=== PATIENT | female | born 1980 | race Caucasian/White ===

== ENCOUNTER 2019-01-21 05:45 | Observation (INO) ==
--- NOTE | 2018-12-27 11:48 | Anesthesiology Consultation ---
Date of Service December 27, 2018 History Surgery Operation Date: 01/21/19 07:30 Proposed Procedures p Robotic Total Laparoscopic Hysterectomy - Gosia Quinonez MD, FACOG Height/Weight Height: 5 ft 3 in Weight: 61.235 kg Allergies Allergy/AdvReac Type Severity Reaction Status Date / Time nitrofurantoin Allergy Mild Rash Verified 12/24/18 08:02 prednisone Allergy Anxiety Verified 12/24/18 08:02 Medications Home Medications Medication Instructions Recorded Confirmed Last Taken albuterol sulfate 1 puff INHALATION Q6H PRN 12/24/18 12/24/18 Unknown cyclobenzaprine 1 dose PO UD PRN 12/24/18 12/24/18 Unknown tizanidine 1 cap PO UD PRN 12/24/18 12/24/18 Unknown tramadol 1 dose PO UD PRN 12/24/18 12/24/18 Unknown Past Surgical History Surgical History History of tubal ligation History of wisdom tooth extraction Social History Smoking Status: Current some day smoker tobacco type: cigarettes Do You Dip or Chew Tobacco: No Hx Alcohol Use: Yes Alcohol type: beer, wine and hard liquor alcohol intake frequency: a few times a week Hx Substance Use: Yes substance use type: marijuana Last Used Substance Other:: 12/24/18
--- NOTE | 2018-12-27 11:54 | PAT Medication Instructions ---
Medication Instructions Date of Service December 27, 2018 Home Medications albuterol sulfate 1 puff INHALATION Q6H PRN cyclobenzaprine 1 dose PO UD PRN tizanidine 1 cap PO UD PRN tramadol 1 dose PO UD PRN DO NOT take the morning of surgery cyclobenzaprine 1 dose PO UD PRN tizanidine 1 cap PO UD PRN Take morning of surgery With a small sip of water, OTHERWISE NOTHING TO EAT OR DRINK AFTER MIDNIGHT: albuterol sulfate 1 puff INHALATION Q6H PRN (use if needed; please bring with you to hospital day of surgery if possible) tramadol 1 dose PO UD PRN (okay to take up to 4 hours prior to surgery if needed) Take evening before surgery albuterol sulfate 1 puff INHALATION Q6H PRN (if needed) cyclobenzaprine 1 dose PO UD PRN (if needed) tizanidine 1 cap PO UD PRN (if needed) tramadol 1 dose PO UD PRN (if needed) Other Notes If you have any questions please call us at [phone] or [phone] or [phone] or [phone]
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
[2018-12-27 12:32] LABS: Basophils # (auto) 0.02 K/uL (0-0.2); Basophils % (auto) 0.5 %; Eosinophils # (auto) 0.21 K/uL (0-0.5); Eosinophils % (auto) 4.9 %; Hematocrit (blood only) 41.4 % (37-47); Hemoglobin 14.3 g/dL (12.0-16.0); Lymphocytes # (auto) 2.06 K/uL (1.2-3.4); Mean Corpuscular Hgb Conc 34.5 g/dL (32-36); Mean Corpuscular Volume 93.2 fL (80-100); Mean Platelet Volume 10.2 fL (7.4-10.4); Monocytes # (auto) 0.36 K/uL (0.11-0.59); Monocytes % (auto) 8.4 %; Neutrophils # (auto) 1.64 K/uL (1.4-6.5); Neutrophils % (auto) 38.2 %; Platelet Count 227 K/uL (130-400); RDW Coefficient of Variation 12.6 % (11.5-14.5); RDW Standard Deviation 43.7 fL (36.4-46.3); Red Blood Count 4.44 M/uL (4.2-5.4); White Blood Count 4.29 K/uL (4.8-10.8)
[2018-12-27 12:48] LABS: BUN Creatinine Ratio 11.2 (10-20); Calcium 9.5 mg/dl (8.5-10.1); Creatinine Clr Calc Pharmacy 96.5 ml/min; Est GFR (African American) 130.8; Est GFR (Non-African American) 112.9
--- OUTSIDE RECORDS SUMMARY | 2019-01-21 05:49 | External Medical Summary | Continuity of Care Document ---
:1980 Author Name Lucien Gaspar, Provider Address Unavailable Unavailable , Care Team Providers Name Role Phone Gosia Quinonez M.D. Unavailable [email or web address], NO Unavailable Unavailable Unavailable Unavailable Unavailable Problems Dysmenorrhea (625.3) (N94.6) Well female exam with routine gynecological exam (V72.31) (Z 01.419) Allergies and Adverse Reactions Macrobid CAPS (Allergy) Medications Singulair TABS Refills: 0 traMADol HCl TABS Refills: 0 Cyclobenzaprine HCl TABS Refills: 0 Zanaflex CAPS Refills: 0 Procedures History of Tubal Ligation Status: Comple jermaine Immunizations Immunizations not documented Plan of Treatment Planned Encounters Appointment; Gosia Quinonez M.D. Start: 05-Feb-2019 11:00 Request Planned Observations Planned Goals not documented Results CBC With DIFF Laboratory: [facility] [address] [facility]. [facility] [address] tel: 27-Dec-2018 11:56 WBC 4.29 K/uL (below low threshold) Rang e: 4.8-10.8 K/uL RBC 4.44 {M/uL} Range: 4.2-5.4 M/uL HEMOGLOBIN 14.3 g/dL Range: 12.0-16.0 g /dL HEMATOCRIT 41.4 % Range: 37-47 % MCV 93.2 fL Range: 80-100 fL MCH 32.2 pg Range: 25-34 pg MEAN CORPUSCULAR HGB CONC 34.5 g/dL Rang e: 32-36 g/dL RED CELL DISTRIBUTION WIDTH SD 43.7 Rang e: 36.4-46.3 fL fL RED CELL DISTRIBUTION WIDTH CV 12.6 Rang e: 11.5-14.5 % % PLATELET COUNT 227 K/uL Range: 130-400 K/uL MEAN PLATELET VOLUME 10.2 fL Range: 7.4 -10.4 fL NEUT % 38.2 % Range: % LYMPH % 48.0 % Range: % MONO % 8.4 % Range: % EOS % 4.9 % Range: % BASO % 0.5 % Range: % IG% 0.0 % Range: % Neutrophils (Auto) 1.64 K/uL Range: 1. 4-6.5 K/uL LYMPH ABS # 2.06 K/uL Range: 1.2-3.4 K/ uL MONO ABS # 0.36 K/uL Range: 0.11-0.59 K /uL EOS ABS # 0.21 K/uL Range: 0-0.5 K/uL BASO ABS # 0.02 K/uL Range: 0-0.2 K/uL IG# 0.00 K/uL Range: 0.00-0.02 K/ uL Basic Metabolic Panel Laboratory: [facility] [address] [facility] [address] tel: 27-Dec-2018 11:56 SODIUM 139 mmol/L Range: 136-145 mmol /L POTASSIUM 4.0 mmol/L Range: 3.5-5.1 mmo l/L CHLORIDE 106 mmol/L Range: 98-107 mmol/ L CARBON DIOXIDE 27 mmol/L Range: 21-32 m mol/L ANION GAP 6.0 Range: 3-11 BLOOD UREA NITROGEN 7 mg/dl Range: 7-18 mg/dl CREATININE 0.66 mg/dl Range: 0.6-1.2 mg /dl Estimated Creatinine Clearance 96.5 Rang e: ml/min ml/min Comments: Est. Creat inine Clearance (Mod Cockcroft-Gault) for pharmacydosing purposes. Estimated GFR () Comment s: Units: ml/min per 130.8 1.73 meters squaredT he estimated GFR (CKD-E PI equation) has not be en validatedfor inpatie nt settings and may not be an accurate reflectiono f renal function in critical ly ill patients or those withrapidly changing renal function (e.g. PRADEEP). Estimated GFR (Non- Comments: Uni ts: ml/min per [place]) 112.9 1.73 meters squaredT he estimated GFR (CKD-E PI equation) has not be en validatedfor inpatie nt settings and may not be an accurate reflectiono f renal function in critical ly ill patients or those withrapidly changing renal function (e.g. PRADEEP). BUN/CREATININE RATIO 11.2 Range: 10-20 GLUCOSE 95 mg/dl Range: 70-99 mg/dl CALCIUM 9.5 mg/dl Range: 8.5-10.1 mg/ dl Vital Signs 27-Dec-2018 10:50 Systolic 116 mm[Hg] Diastolic 64 mm[Hg] BMI Calculated 23.81 kg/m2 Weight 134.4 lb Height 63 in BSA Calculated 1.63 m2 Encounters Appointment; Gosia Quinonez M.D. 27-Dec-2018 11:00 Encounter Diagnosis: Problem not documented Appointment; OBGYN [facility], Ultrasound 29-Nov-2018 9:30 Encounter Diagnosis: Problem not documented Appointment; Gosia Quinonez M.D. 12-Nov-2018 15:30 Encounter Diagnosis: Problem not documented Appointment; Gosia Quinonez M.D. 05-Feb-2019 11:00 Encounter Diagnosis: Problem not documented
[2019-01-21] MEDS ORDERED: LACTATED RINGER'S 1,000 ML IV SCH ×2 (06:00→09:15)
[2019-01-21] MEDS ORDERED: CEFAZOLIN 2000MG 2,000 MG/15 ML SYR IV SCH (06:00)
[2019-01-21] MEDS ORDERED: LR 15ML/HR IV SCH (06:00)
--- NOTE | 2019-01-21 06:22 | History & Physical Bridge Note ---
Date of Service January 21, 2019 History & Physical Bridge Note I have examined the patient, reviewed the History & Physical and in the interval since the performance of the History & Physical I have noted the following changes of clinical significance: no changes noted
[2019-01-21] MEDS ORDERED: fentaNYL citrate 100 MCG/2 ML VIAL ONE (06:53)
[2019-01-21] MEDS ORDERED: LARYING-O-JET KIT (LTA) ONE (06:53)
[2019-01-21] MEDS ORDERED: LIDOCAINE HCL 2% 2 ML VIAL/AMP(20MG/ML) INFIL ONE (06:53)
[2019-01-21] MEDS ORDERED: ONDANSETRON INJ 2 MG/ML 2 ML VIAL ONE (06:53)
[2019-01-21] MEDS ORDERED: PROPOFOL IV EMULSION 10 MG/ML 20 ML VIAL IV ONE (06:53)
[2019-01-21] MEDS ORDERED: MIDAZOLAM HCL 1 MG/ML 2ML VIAL ONE (06:54)
[2019-01-21] MEDS ORDERED: BUPIVACAINE 0.5 % 5 MG/1 ML MPF 30ML VIAL ONE (06:58)
[2019-01-21] MEDS ORDERED: ePHEDrine sulfate 50 MG/ML AMP IV PRN (07:00)
[2019-01-21] MEDS ORDERED: HYDROmorphone INJ 2 MG/ML SYR/VIAL IV PRN (07:00)
[2019-01-21] MEDS ORDERED: ATROPINE SULFATE 0.1 MG/ML 10ML SYR IV PRN (07:00)
[2019-01-21] MEDS ORDERED: PROMETHAZINE HCL 6.25 MG in SODIUM CHLORIDE 0.9% 50 ML IV PRN (07:00)
[2019-01-21] MEDS ORDERED: ONDANSETRON INJ 2 MG/ML 2 ML VIAL IV PRN ×2 (07:00→09:08)
[2019-01-21] MEDS ORDERED: HYDROmorphone INJ 2 MG/ML SYR/VIAL ONE (07:49)
[2019-01-21] MEDS ORDERED: TISSEEL FIBRIN SEALANT 4ML TOP ONE (08:26)
[2019-01-21] MEDS ORDERED: GLYCOPYRROLATE 0.2 MG/ML VIAL ONE (08:29)
[2019-01-21] MEDS ORDERED: NEOSTIGMINE METHYLSULFATE 5 MG/5 ML SYR ONE (08:29)
[2019-01-21] MEDS ORDERED: ROCURONIUM BROMIDE 10 MG/ML 5 ML VIAL ONE (08:30)
[2019-01-21] MEDS ORDERED: ACETAMINOPHEN 325 MG TAB PO PRN (09:08)
[2019-01-21] MEDS ORDERED: PROMETHAZINE HCL 25 MG in SODIUM CHLORIDE 0.9% 50 ML IV PRN (09:08)
[2019-01-21] MEDS ORDERED: MAGNESIUM HYDROXIDE SUSP 30 ML UDC PO PRN (09:08)
[2019-01-21] MEDS ORDERED: ZOLPIDEM TARTRATE 5 MG TAB PO PRN (09:08)
[2019-01-21] MEDS ORDERED: BISACODYL 10 MG SUPP PR PRN (09:08)
[2019-01-21] MEDS ORDERED: MEPERIDINE HCL 50 MG/ML CARP IV PRN (09:08)
[2019-01-21] MEDS ORDERED: KETOROLAC 30 MG/ML VIAL IV PRN (09:08)
[2019-01-21] MEDS ORDERED: OXYCODONE/ACETAMINOPHEN 5mg/325mg TAB PO PRN ×2 (09:08)
[2019-01-21] MEDS ORDERED: IBUPROFEN 600 MG TAB PO PRN (09:08)
[2019-01-21] MEDS ORDERED: PROMETHAZINE HCL 12.5 MG in SODIUM CHLORIDE 0.9% 50 ML IV PRN (09:08)
[2019-01-21] MEDS ORDERED: SIMETHICONE 80 MG CHEW PO PRN (09:08)
--- NOTE | 2019-01-21 09:15 | Operative Report ---
Post Operative Report Pre & Post Diagnosis Operation Date: 01/21/19 07:30 Pre-Op Diagnosis: Dysmenorrhea Post-Op Diagnosis: Dysmenorrhea Procedure Operation Date: 01/21/19 07:30 Actual Procedures p Robotic Total Laparoscopic Hysterectomy with Bilateral Salpingectomies and Cystoscopy(Not Applicable) - Gosia Quinonez MD, FACOG Surgeon Gosia Quinonez MD, FACOG Senior Media Planner none Estimated Blood Loss 5 Findings Consistent with Post-Op Diagnosis Specimens Uterus cervix bilateral fallopian tubes Description of Procedure Patient given a general anesthetic prepped and draped in dorsal lithotomy position in [facility] bladder drained with a Limon catheter V care inserted into her uterus in the usual fashion glove change and a subumbilical incision made with scalpel using Raman technique we did a cutdown into the peritoneal cavity blunt-tipped Raman trocar then placed balloon inflated to stabilize the port CO2 gas used to insufflate the abdomen Findings upper abdomen normal no sign of visceral organ injury deep Trendelenburg obtained uterus appeared normal bilateral Filshie clips were noted on left and right fallopian tubes ureters seem to follow a normal course no significant adhesions or endometriosis 2 robotic ports placed one in the left one on the right left upper quadrant 11 mm blade less port then placed as well all under direct visualization robot docked arm #1 was monopolar isela arm #2 was the [place] bipolar Uterus was manipulated using the V care was able to remove the fallopian tubes and Filshie clips and these were removed through the accessory ports. We then identified the course of the ureter was well aware from the blood supply of the ovary we then coagulated the left utero-ovarian blood supply distal to the left ovary. This was then cut with monopolar isela same process with the left round ligament uterine vessels were then skeletonized bladder flap sharply dissected away uterine vessels were coagulated we were well away from the left ureter at this time monopolar isela were then used to cut the uterine vessels the exact same process was continued on the right side once both uterine vessels were secured colpotomy was made with the monopolar isela. We stayed inside of cart uterine vessel ligations on the colpotomy uterus was then pulled into the vagina to maintain pneumoperitoneum at this stage we then exchanged instruments arm #1 became the Capo needle telephone directory distributor driver arm #2 became the [employer] grasper 12 inch 2 oh 90- day V lock suture was then placed through the accessory port and cuff was closed taking at least 1 cm full-thickness bites of vaginal mucosa Suture was then cut so there was no tail needle removed for the excess report after generous irrigation and suction we applied 4 mL of Tisseel to the pedicles Cystoscopy was performed revealing normal bladder no sutures good strong jets of urine from left and right ureter openings Cystoscope removed and new Limon catheter placed uterus had been removed from the vagina. The robot was undocked gas allowed to escape instruments have been removed and incisions injected with 0.5% Marcaine fascia closed carefully with 0 Vicryl in the umbilical and left upper quadrant incisions 4-0 subcuticular Monocryl closures and Dermabond applied sponge and instrument counts were correct there was no vaginal bleeding at the end of the procedure and urine was clear I attest to the content of the Intraoperative Record and any orders documented therein. Any exceptions are noted below.
--- NOTE | 2019-01-21 09:27 | Anesthesiology Progress Note ---
Date of Service January 21, 2019 Anesthesia Post Procedure Vital Signs Vital Signs: Temp Pulse Resp BP Pulse Ox 01/21/19 06:16 37.2 C 81 20 132/86 99 Transfer of Care Handoff Completed per policy Notes Mental Status: alert / awake / arousable Patient Amnestic to Procedure: Yes Nausea / Vomiting: adequately controlled Pain: adequately controlled Airway Patency, RR, SpO2: stable & adequate BP & HR: stable & adequate Hydration State: stable & adequate Anesthetic Complications: no major complications apparent
[2019-01-21] MEDS: fentaNYL citrate 100 MCG/2 ML VIAL IV PRN ×2 (09:30→09:38)
[2019-01-21] MEDS ORDERED: KETOROLAC 30 MG/ML VIAL ONE (11:29)
--- NOTE | 2019-01-21 16:45 | Obstetrical Progress Note ---
Date of Service January 21, 2019 Subjective Cervix rechecked at this time she is long thick and closed there is minimal bleeding she has some mild irritability on her uterine tracing however there are no significant contractions the patient was sleeping she is having some side effects from some of the previous medications our plan is to discharge her home soon Results & Data Vital Signs (Past 12 Hours) Vital Signs Temp Pulse Pulse Resp BP Pulse Ox 01/21/19 15:25 97.5 F L 67 16 139/89 100 01/21/19 13:30 97.3 F L 75 16 140/87 100 01/21/19 12:30 97.5 F L 88 20 138/92 100 01/21/19 11:30 97.7 F 79 20 134/83 100 01/21/19 11:00 97.7 F 83 20 126/80 98 01/21/19 10:30 97.3 F L 94 H 20 139/81 99 01/21/19 10:15 97.5 F L 79 19 125/81 99 01/21/19 10:05 97.5 F L 67 16 138/77 99 01/21/19 09:55 97.5 F L 69 16 127/78 100 01/21/19 09:45 97.5 F L 69 16 147/93 H 100 01/21/19 09:35 64 14 138/94 100 01/21/19 09:25 75 16 150/79 H 100 01/21/19 09:17 97.7 F 80 14 148/97 H 100 01/21/19 06:16 99.0 F 81 20 132/86 99
[2019-01-21] MEDS ORDERED: DOCUSATE SODIUM 100 MG CAP PO SCH (21:00)
--- NOTE | 2019-01-25 16:06 | Discharge Summary ---
Date of Service January 25, 2019 [facility] and on same day met criteria for discharge. No bleeding, pain well controlled, no ext pain. Ambulating well. Instructions reviewed, prescriptions given Admission Exam (Per Admitting) Constitutional WD/WN, vitals as above Discharge Data Procedures Performed Operation Date: 01/21/19 07:30 Actual Procedures p Robotic Total Laparoscopic Hysterectomy with Bilateral Salpingectomies (Not Applicable) - Gosia Quinonez MD, FACOG s Cystoscopy(Not Applicable) - Gosia Quinonez MD, FACOG
== END 2019-01-21 17:15 | disposition home or self-care (01) ==
LOC: ASU 05:45 → 4N 05:45